=== PATIENT | female | born 1955 | race Caucasian/White ===

== ENCOUNTER 2016-08-25 09:34 | Emergency (ER) | payer OTHER ==
[~2016-08-25] VITALS: Ht 170.2 cm; Wt 122.0 kg
[~2016-08-25 09:34] MED LIST: CARV12.52 PO; CEPH500C25 OR; CHOL100027 OR; CLC150 PO; CLX20 PO; GLC500 PO; MEDLIST; REVEIWED
[2016-08-25 09:47] VITALS: TEMP 37.1; Ht 170.2 cm; Wt 122.0 kg
[2016-08-25] MEDS ORDERED: LABETALOL HCL IV 5 MG/ML 20ML IV STA (09:59)
--- NOTE | 2016-08-25 10:03 | EMERGENCY ROOM VISIT NOTE ---
History Report prepared by Malcolm: Frandy Rey Under the Supervision of: Dr. Boyd Ramos M.D. First contact with patient: 09:53 Chief Complaint: HYPERTENSION Stated Complaint: HBP, HEADACHE, OCCASIONAL CHEST PAIN,HORSEY COUGH History of Present Illness The patient is a 60 year old female who presents to the Emergency Room with complaints of persistent hypertension that was detected prior to arrival this morning. She was sent here from [facility] for the hypertension. The patient went to [facility] for a "nasty" cough with bloody mucous that has been going on for 2 weeks. She has been taking Mucinex and NyQuil, but they have not helped. She also notes that her eyes have been blurry for the past couple days, in addition to a headache and frequent urination. She states that she has had hypertension for years, but she does not take any medications for it. The patient's primary care physician left years ago and the patient says she has no insurance. She denies chest pain, shortness of breath, runny nose, or leg swelling. She states that she has not been diagnosed with diabetes. She is not taking any daily medications. The patient has never smoked. She has not taken any recent antibiotics or steroids. Source of History: patient Onset: Detected prior to arrival this morning Position: other (global - hypertension) Timing: other (persistent) Associated Symptoms: + cough, + headache, + urinary symptoms, No SOB, No chest pain Note: Associated symptoms: Blurry vision past few days. Denies runny nose or leg swelling. Review of Systems See HPI for pertinent positives & negatives. A total of 10 systems reviewed and were otherwise negative. Past Medical & Surgical Medical Problems: (1) Hypertension Family History No pertinent family history Social History Smoking Status: Never Smoker Marital Status: Housing Status: lives with family Occupation Status: unemployed Current/Historical Medications No Active Prescriptions or Reported Meds Allergies Coded Allergies: No Known Allergies (Verified , 08/25/16) Physical Exam Vital Signs Date Time Temp Pulse Resp B/P Pulse Ox O2 Delivery O2 Flow Rate FiO2 08/25/16 12:54 77 18 174/86 94 08/25/16 12:24 72 179/99 94 Room Air 08/25/16 11:08 73 164/86 08/25/16 11:03 79 204/86 08/25/16 10:55 81 18 210/121 08/25/16 10:42 85 08/25/16 09:47 37.1 84 18 211/120 96 Room Air Physical Exam GENERAL: Patient is well appearing and in no acute distress. HEENT: No acute trauma, normocephalic atraumatic, mucous membranes moist, no nasal congestion, no scleral icterus. NECK: No stridor, no adenopathy, no meningismus, trachea is midline. LUNGS: Junky cough. Mild crackles at bases. HEART: Regular rate and rhythm. No murmurs, rubs, gallops appreciated. ABDOMEN: Soft, nontender, bowel sounds positive, no masses appreciated, no peritonitis. BACK: No midline tenderness, no CVA tenderness EXTREMITIES: Normal motion all extremities, no cyanosis. 1+ edema bilateral ankles. NEUROLOGIC: Alert and oriented, no acute motor or sensory deficits, no focal weakness, cranial nerves grossly intact. SKIN: No rash, no jaundice, no diaphoresis. Medical Decision & Procedures ER Provider Diagnostic Interpretation: X ray results and stated below per my interpretation and radiologist interpretation. Other radiology results and stated below per my review and radiologist interpretation: CHEST ONE VIEW PORTABLE CLINICAL HISTORY: Persistent cough. COMPARISON STUDY: No previous studies for comparison. FINDINGS: Lung volumes are normal. This study is compromised by suboptimal penetration. No consolidation is identified. There is mild to moderate enlargement of the cardiac silhouette without evidence of pulmonary edema. IMPRESSION: 1. No acute findings. 2. Mild to moderate enlargement of the cardiac silhouette. Electronically signed by: Ernesto Calhoun M.D. 08/25/2016 10:23 AM Dictated Date/Time: 08/25/2016 10:[address] ANGIOGRAM OF THE BRAIN COMBO CLINICAL HISTORY: Headache. COMPARISON STUDY: No priors. TECHNIQUE: Unenhanced axial CT scan of the brain is performed. Subsequently, following the IV administration of 119 cc of Optiray 320, CT angiogram of the brain was performed from the skull base to the vertex. Images are reviewed in the axial, sagittal, and coronal planes. 3-D MIPS images are created and assessed. IV contrast was administered without complication. CT DOSE: 1112.43 mGycm FINDINGS: Brain parenchyma: The brain parenchyma is normal in appearance. There is no hemorrhage, mass effect, or evidence of acute territorial ischemia by CT criteria. There is no evidence of enhancing mass lesion on the angiogram phase images. No extra-axial fluid collection is seen. Vergara-white matter differentiation is preserved. Ventricles, sulci, and cisterns: Normal in configuration. CT angiogram of the brain: There is atherosclerotic calcification of the cavernous carotid arteries. The [place] is developmentally complete. The internal carotid arteries are widely patent, as are the anterior and middle cerebral arteries. The vertebrobasilar system and posterior cerebral arteries are widely patent. The vertebral arteries are codominant. There is no aneurysm, high-grade stenosis, or focal vessel cutoff identified throughout the intracranial circulation. Dural sinuses: Clear. Orbits: The bony orbits are intact. The orbital contents are normal as visualized. Sinuses and mastoids: There is trace mucosal thickening in the left maxillary antrum. The remaining paranasal sinuses are clear. The mastoid air cells are well pneumatized. Calvarium: Unremarkable. IMPRESSION: 1. There is no hemorrhage, mass effect, or evidence of acute territorial ischemia by CT criteria. 2. Unremarkable CT angiogram of the brain. Electronically signed by: Flavio Banerjee M.D. 08/25/2016 11:56 AM Dictated Date/Time: 08/25/2016 11:52 AM Laboratory Results 08/25/16 10:10 08/25/16 10:10 Test 08/25/16 10:10 08/25/16 10:34 Red Blood Count 5.38 M/uL (4.2-5.4) Mean Corpuscular Volume 84.9 fL (80-100) Mean Corpuscular Hemoglobin 30.1 pg (25-34) Mean Corpuscular Hemoglobin Concent 35.4 g/dl (32-36) RDW Standard Deviation 39.5 fL (36.4-46.3) RDW Coefficient of Variation 12.9 % (11.5-14.5) Mean Platelet Volume 10.0 fL (7.4-10.4) Anion Gap 9.0 mmol/L (3-11) Est Creatinine Clear Calc Drug Dose 98.8 ml/min Estimated GFR () 89.5 Estimated GFR (Non- 77.2 BUN/Creatinine Ratio 11.6 (10-20) Calcium Level 9.3 mg/dl (8.5-10.1) Troponin I < 0.015 ng/ml (0-0.045) Chemistry Specimen Hemolysis Urine Color YELLOW Urine Appearance CLOUDY (CLEAR) Urine pH 6.0 (4.5-7.5) Urine Specific [place] 1.022 (1.000-1.030) Urine Protein NEG (NEG) Urine Glucose (UA) NEG (NEG) Urine Ketones NEG (NEG) Urine Occult Blood 2+ (NEG) Urine Nitrite NEG (NEG) Urine Bilirubin NEG (NEG) Urine Urobilinogen NEG (NEG) Urine Leukocyte Esterase NEG (NEG) Urine WBC (Auto) 1-5 /hpf (0-5) Urine RBC (Auto) 10-30 /hpf (0-4) Urine Hyaline Casts (Auto) 1-5 /lpf (0-5) Urine Epithelial Cells (Auto) >30 /lpf (0-5) Urine Bacteria (Auto) 1+ (NEG) Laboratory results as reviewed by me. Medications Administered Medications (Trade) Dose Ordered Sig/Juan Ramon Route Start Time Stop Time Status Last Admin Dose Admin Labetalol HCl (Normodyne IV) 10 mg NOW STAT IV 08/25/16 09:59 08/25/16 10:01 DC 08/25/16 10:59 10 MG ECG Indication: other (hypertension) Rate (beats per minute): 81 Rhythm: normal sinus Findings: no ectopy, other (nonspecific ST abnormalities, no STEMI) ED Course 0953: The patient was evaluated in room A3. A complete history and physical exam was performed. 0959: Ordered Normodyne IV 10 mg IV. 1056: I reevaluated the patient and the patient's father of a brain aneurysm and had similar symptoms to the patient prior to it, so the patient agrees to a CT of his head. The patient's 3 brothers all had AZ's in their 50s or 60s. 1220: I reevaluated the patient and she is resting comfortably. The patient verbally expressed understanding and agreement of the treatment plan. The patient will be discharged. Medical Decision Differential: Benign Hypertension, Hypertensive Urgency/Emergency, Cardiovascular Pathology, Endocrine, Metabolic/Electrolyte, Renal Disease, End- organ Damage, amongst other pathologies entertained. 60 yr old female arrives with complaint of HTN, cough and sinus infection. Cough and sinus infection ongoing for 2 weeks. Mild headache semi chronic with her hypertension. Does have family history of cerebral aneurysm thus CTA done which was normal. Labs looking OK. No evidence of acute enorgan damage. Unclear her previous meds for hypertension thus will start with Norvasc which can be doubled if no improvement in BP. Case management set up Sunday appointment with new PCP. She is stable, no neuro deficits and wants to go home. Given prolonged sinus/bronchitis will treat with steroids and abx. Discussed symptoms requiring RTED. Impression Primary Impression: Hypertension Additional Impression: Acute sinus infection Scribe Attestation The scribe's documentation has been prepared under my direction and personally reviewed by me in its entirety. I confirm that the note above accurately reflects all work, treatment, procedures, and medical decision making performed by me. Departure Information Dispostion Home / Self-Care Prescriptions No Active Prescriptions or Reported Meds Patient Instructions Hypertension Dc, My [facility] Problem Qualifiers Primary Impression: Hypertension Hypertension type: essential hypertension Qualified Codes: I10 - Essential ( primary) hypertension Additional Impression: Acute sinus infection Sinusitis location: maxillary Recurrence: non-recurrent Qualified Codes: J01.00 - Acute maxillary sinusitis, unspecified
--- NOTE | 2016-08-25 10:25 | DIAGNOSTIC IMAGING REPORT ---
CHEST ONE VIEW PORTABLE CLINICAL HISTORY: Persistent cough. COMPARISON STUDY: No previous studies for comparison. FINDINGS: Lung volumes are normal. This study is compromised by suboptimal penetration. No consolidation is identified. There is mild to moderate enlargement of the cardiac silhouette without evidence of pulmonary edema. IMPRESSION: 1. No acute findings. 2. Mild to moderate enlargement of the cardiac silhouette. Electronically signed by: Ernesto Calhoun M.D. 08/25/2016 10:23 AM Dictated Date/Time: 08/25/2016 10:19 AM
[2016-08-25 10:42] LABS: HEMATOCRIT 45.7 % (37-47); MEAN CELL VOLUME 84.9 fL (80-100); MEAN CORPUSCULAR HEMOGLOBIN 30.1 pg (25-34); MEAN CORPUSCULAR HGB CONC 35.4 g/dl (32-36); PLATELET COUNT 299 K/uL (130-400); RED BLOOD COUNT 5.38 M/uL (4.2-5.4); WHITE BLOOD COUNT 11.09 K/uL (4.8-10.8)
[2016-08-25 10:59] LABS: URINE APPEARANCE CLOUDY (CLEAR); URINE BILIRUBIN NEG (NEG); URINE COLOR YELLOW; URINE EPITHELIAL CELL AUTO >30 /lpf (0-5); URINE NITRITE NEG (NEG); URINE SPECIFIC GRAVITY 1.022 (1.000-1.030); UROBILINOGEN NEG (NEG); ZZUR CULT IF INDIC CLEAN CATCH YES
[2016-08-25 11:05] LABS: BLOOD UREA NITROGEN 10 mg/dl (7-18); BUN/CREATININE RATIO 11.6 (10-20); CALCIUM 9.3 mg/dl (8.5-10.1); CARBON DIOXIDE 25 mmol/L (21-32); CHLORIDE 108 mmol/L (98-107); CREATININE 0.83 mg/dl (0.60-1.20); GLUCOSE 88 mg/dl (70-99); SODIUM 142 mmol/L (136-145)
[2016-08-25 11:08] LABS: MANUAL MICROSCOPIC REQUIRED? NO; REVIEW REQ? NO
--- NOTE | 2016-08-25 11:58 | DIAGNOSTIC IMAGING REPORT ---
CT ANGIOGRAM OF THE BRAIN COMBO CLINICAL HISTORY: Headache. COMPARISON STUDY: No priors. TECHNIQUE: Unenhanced axial CT scan of the brain is performed. Subsequently, following the IV administration of 119 cc of Optiray 320, CT angiogram of the brain was performed from the skull base to the vertex. Images are reviewed in the axial, sagittal, and coronal planes. 3-D MIPS images are created and assessed. IV contrast was administered without complication. CT DOSE: 1112.43 mGycm FINDINGS: Brain parenchyma: The brain parenchyma is normal in appearance. There is no hemorrhage, mass effect, or evidence of acute territorial ischemia by CT criteria. There is no evidence of enhancing mass lesion on the angiogram phase images. No extra-axial fluid collection is seen. Vergara-white matter differentiation is preserved. Ventricles, sulci, and cisterns: Normal in configuration. CT angiogram of the brain: There is atherosclerotic calcification of the cavernous carotid arteries. The [place] is developmentally complete. The internal carotid arteries are widely patent, as are the anterior and middle cerebral arteries. The vertebrobasilar system and posterior cerebral arteries are widely patent. The vertebral arteries are codominant. There is no aneurysm, high-grade stenosis, or focal vessel cutoff identified throughout the intracranial circulation. Dural sinuses: Clear. Orbits: The bony orbits are intact. The orbital contents are normal as visualized. Sinuses and mastoids: There is trace mucosal thickening in the left maxillary antrum. The remaining paranasal sinuses are clear. The mastoid air cells are well pneumatized. Calvarium: Unremarkable. IMPRESSION: 1. There is no hemorrhage, mass effect, or evidence of acute territorial ischemia by CT criteria. 2. Unremarkable CT angiogram of the brain. Electronically signed by: Flavio Banerjee M.D. 08/25/2016 11:56 AM Dictated Date/Time: 08/25/2016 11:52 AM
[2016-08-25] MEDS ORDERED: PRED50TA PO (12:16)
[2016-08-25] MEDS ORDERED: AMOX875T PO (12:16)
[2016-08-25] MEDS ORDERED: AMLO-110 PO (12:16)
[2016-08-25 12:54] VITALS: BP 174/86; PULSE 77; O2SAT 94
== END 2016-08-25 13:02 | disposition home or self-care (01) ==
LOC: C.EDB 09:35 → C.EDA 13:02
DX: I10 Essential (primary) hypertension (principal); J01.00 Acute maxillary sinusitis, unspecified

== ENCOUNTER → 2016-09-08 | Outpatient (CLI) | payer OTHER ==
[~2016-09-08] MED LIST changes: -CARV12.52 PO; -CEPH500C25 OR; -CHOL100027 OR; +CITA20TA4 PO; -CLC150 PO; -CLX20 PO; -GLC500 PO; +LISI-787 PO; -MEDLIST; -REVEIWED
--- NOTE | 2016-09-14 15:37 | MAMMOGRAPHY REPORT ---
BILATERAL DIGITAL SCREENING MAMMOGRAM TOMOSYNTHESIS WITH CAD: 09/08/2016 CLINICAL HISTORY: Routine screening. Patient has no complaints. TECHNIQUE: Breast tomosynthesis in addition to standard 2D mammography was performed. Current study was also evaluated with a Computer Aided Detection (CAD) system. COMPARISON: Comparison is made to exams dated: 02/08/2009 mammogram and 01/25/2009 mammogram - [facility]. BREAST COMPOSITION: There are scattered areas of fibroglandular density in both breasts. FINDINGS: No suspicious masses, calcifications, or areas of architectural distortion are noted in e ither breast. There has been no significant interval change compared to prior exams. Oval circumscr ibed benign-appearing 10 mm mass in the left upper outer quadrant is stable compared to the prior 28 03 exams. IMPRESSION: ACR BI-RADS CATEGORY 2: BENIGN There is no mammographic evidence of malignancy. A 1 year screening mammogram is recommended. The p atient will receive written notification of the results. Approximately 10% of breast cancers are not detected with mammography. A negative mammographic repor t should not delay biopsy if a clinically suggestive mass is present. Alaina Jacobs M.D. ah/:09/14/2016 13:47:46 Bull Ladle Tender: Ny LEIGH)(M), [facility] [address] letter sent: Normal 1/2 BI-RADS Code: ACR BI-RADS Category 2: Benign
== END | disposition home or self-care (01) ==
LOC: C.MAMM 13:27
PROVIDERS: ATTEND Neuromusculoskeletal Medicine & OMM
DX: Z12.31 Encounter for screening mammogram for malignant neoplasm of breast (principal)

== ENCOUNTER 2017-02-07 11:41 | Emergency (ER) | payer OTHER ==
[~2017-02-07] VITALS: Ht 170.2 cm; Wt 120.5 kg
[2017-02-07 11:46] VITALS: TEMP 37.2; Ht 170.2 cm; Wt 120.5 kg
[2017-02-07] MEDS ORDERED: METOCLOPRAMIDE HCL INJ 5 MG/ML 2 ML VIAL IV STA (12:15)
[2017-02-07] MEDS ORDERED: DiphenhydrAMINE HCL 50 MG/ML VIAL IV STA (12:15)
--- NOTE | 2017-02-07 12:16 | EMERGENCY ROOM VISIT NOTE ---
History Report prepared by Malcolm: Frandy Rey Under the Supervision of: Dr. Hank Stinson M.D. First contact with patient: 11:50 Chief Complaint: CARDIAC ASSESSMENT Stated Complaint: HIGH BLOOD PRESSURE,DIZZINESS,DOCTOR REFERRED Nursing Triage Summary: triage ntoe; pt reports for the past 10 days she has had intermittent dizzy episodes, headaches and occasional chest pain. History of Present Illness The patient is a 61 year old female who presents to the Emergency Room with complaints of intermittent dizzy spells that started 10 days ago. She says that occasionally when she walks, she gets woozy and off-balance. The patient states that she cannot find a pattern as to what brings on the episodes. She adds that she has been having intermittent mild chest pain and headaches, and the last chest pain episode was a couple days ago. She notes that her blood pressure has been elevated over the past week, but she has been taking her blood pressure medications (Lisinopril, HCTZ), including this morning. The patient called her primary care office this morning, and talked to a nurse there, who recommended that the patient come here for evaluation after the patient told the nurse that her blood pressure was currently 140/119. Currently, the patient says she feels fine, but the room is "not focused perfectly". She denies any numbness, tingling , or weakness. She does not drink alcohol, use tobacco products, or use recreational drugs. Source of History: patient Onset: 10 days ago Position: other (global - dizzy ) Timing: intermittent Associated Symptoms: + headache, + chest pain, No weakness, No numbness (or tingling) Note: Associated symptoms: Intermittently off balance. Review of Systems See HPI for pertinent positives and negatives. A total of ten systems were reviewed and were otherwise negative. Past Medical & Surgical Medical Problems: (1) Hypertension Family History No pertinent family history Social History Smoking Status: Never Smoker Smokeless Tobacco Use: No Alcohol Use: none Drug Use: none Marital Status: Housing Status: lives with family Occupation Status: unemployed Current/Historical Medications Scheduled Citalopram Hydrobromide (Citalopram Hydrobromide), 20 MG PO DAILY Lisinopril/Hctz (Zestoretic 20MG/12.5MG), 1 TAB PO DAILY Allergies Coded Allergies: No Known Allergies (Verified , 08/25/16) Physical Exam Vital Signs Date Time Temp Pulse Resp B/P (MAP) Pulse Ox O2 Delivery O2 Flow Rate FiO2 02/07/17 13:41 66 19 95 02/07/17 13:31 146/86 02/07/17 13:11 69 22 94 02/07/17 13:01 193/91 02/07/17 12:32 184/91 02/07/17 12:11 76 21 92 02/07/17 12:09 79 02/07/17 12:03 185/92 02/07/17 11:46 37.2 81 18 159/84 96 Room Air Physical Exam GENERAL: Awake, alert, well-appearing, in no distress HENT: Normocephalic, atraumatic. Oropharynx unremarkable. EYES: Normal conjunctiva. Sclera non-icteric. NECK: Supple. No nuchal rigidity. FROM. No JVD. RESPIRATORY: Clear to auscultation. CARDIAC: Regular rate, normal rhythm. Extremities warm and well perfused. Pulses equal. ABDOMEN: Soft, non-distended. No tenderness to palpation. No rebound or guarding. No masses. RECTAL: Deferred. MUSCULOSKELETAL: Chest examination reveals no tenderness. The back is symmetrical on inspection without obvious abnormality. There is no CVA tenderness to palpation. No joint edema. LOWER EXTREMITIES: Calves are equal size bilaterally and non-tender. No edema. No discoloration. NEURO: Cranial nerves 2-12 intact. Mild fatigable horizontal nystagmus. 5/5 upper extremity and lower extremity strength. MUR SP, DP, Tib nerves intact to sensory and motor. No pronator drift. Good finger to nose, good heel to lara. SKIN: No rash or jaundice noted. Medical Decision & Procedures ER Provider Diagnostic Interpretation: X-ray: Per my interpretation, radiologist review. TWO VIEW CHEST CLINICAL HISTORY: Intermittent atypical chest pain. FINDINGS: PA and lateral chest radiographs are compared to study dated 08/25/2016. The examination is degraded by large body habitus. The heart is top normal for projection. The mediastinal contour is within normal limits. The lungs and pleural spaces are clear. There is no pneumothorax. The skeletal structures are osteopenic. The bony thorax appears intact. IMPRESSION: No active disease in the chest. Electronically signed by: Flavio Banerjee M.D. 02/07/2017 1:02 PM Dictated Date/Time: 02/07/2017 1:02 PM Laboratory Results 02/07/17 11:55 Red Blood Count 5.11, Mean Corpuscular Volume 89.8, Mean Corpuscular Hemoglobin 31.1, Mean Corpuscular Hemoglobin Concent 34.6, Mean Platelet Volume 10.2, Neutrophils (%) (Auto) 61.2, Lymphocytes (%) (Auto) 25.7, Monocytes (%) (Auto) 8.4, Eosinophils (%) (Auto) 3.8, Basophils (%) (Auto) 0.6, Neutrophils # (Auto) 6.56, Lymphocytes # (Auto) 2.76, Monocytes # (Auto) 0.90, Eosinophils # (Auto) 0.41, Basophils # (Auto) 0.06 02/07/17 11:55 02/07/17 12:57 Test 02/07/17 11:55 02/07/17 12:36 02/07/17 12:45 02/07/17 12:57 White Blood Count 10.72 K/uL (4.8-10.8) Red Blood Count 5.11 M/uL (4.2-5.4) Hemoglobin 15.9 g/dL (12.0-16.0) Hematocrit 45.9 % (37-47) Mean Corpuscular Volume 89.8 fL (80-100) Mean Corpuscular Hemoglobin 31.1 pg (25-34) Mean Corpuscular Hemoglobin Concent 34.6 g/dl (32-36) Platelet Count 292 K/uL (130-400) Mean Platelet Volume 10.2 fL (7.4-10.4) Neutrophils (%) (Auto) 61.2 % Lymphocytes (%) (Auto) 25.7 % Monocytes (%) (Auto) 8.4 % Eosinophils (%) (Auto) 3.8 % Basophils (%) (Auto) 0.6 % Neutrophils # (Auto) 6.56 K/uL (1.4-6.5) Lymphocytes # (Auto) 2.76 K/uL (1.2-3.4) Monocytes # (Auto) 0.90 K/uL (0.11-0.59) Eosinophils # (Auto) 0.41 K/uL (0-0.5) Basophils # (Auto) 0.06 K/uL (0-0.2) RDW Standard Deviation 42.7 fL (36.4-46.3) RDW Coefficient of Variation 12.9 % (11.5-14.5) Immature Granulocyte % (Auto) 0.3 % Immature Granulocyte # (Auto) 0.03 K/uL (0.00-0.02) Anion Gap 5.0 mmol/L (3-11) Est Creatinine Clear Calc Drug Dose 85.6 ml/min Estimated GFR () 76.4 Estimated GFR (Non- 65.9 BUN/Creatinine Ratio 15.0 (10-20) Calcium Level 9.4 mg/dl (8.5-10.1) Phosphorus Level 2.4 mg/dl (2.5-4.9) Bedside Troponin I < 0.030 ng/ml (0-0.045) Urine Color YELLOW Urine Appearance CLEAR (CLEAR) Urine pH 6.0 (4.5-7.5) Urine Specific Cuervo 1.014 (1.000-1.030) Urine Protein NEG (NEG) Urine Glucose (UA) NEG (NEG) Urine Ketones NEG (NEG) Urine Occult Blood 1+ (NEG) Urine Nitrite NEG (NEG) Urine Bilirubin NEG (NEG) Urine Urobilinogen NEG (NEG) Urine Leukocyte Esterase NEG (NEG) Urine WBC (Auto) 1-5 /hpf (0-5) Urine RBC (Auto) 0-4 /hpf (0-4) Urine Hyaline Casts (Auto) 0 /lpf (0-5) Urine Epithelial Cells (Auto) >30 /lpf (0-5) Urine Bacteria (Auto) NEG (NEG) Magnesium Level 1.7 mg/dl (1.8-2.4) Laboratory results reviewed by me Medications Administered Medications (Trade) Dose Ordered Sig/Juan Ramon Route Start Time Stop Time Status Last Admin Dose Admin Metoclopramide HCl (Reglan Inj) 10 mg NOW STAT IV 02/07/17 12:15 02/07/17 12:26 DC 02/07/17 12:39 10 MG Diphenhydramine HCl (Benadryl Inj) 25 mg NOW STAT IV 02/07/17 12:15 02/07/17 12:26 DC 02/07/17 12:40 25 MG Sodium Chloride 1,000 ml @ 999 mls/hr Q1H1M IV 02/07/17 12:15 03/09/17 12:14 02/07/17 12:58 999 MLS/HR ECG Indication: chest pain Rate (beats per minute): 75 Rhythm: normal sinus Findings: other (normal NV and QRS intervals, no major ST or T wave abnormalities) ED Course 1159: The patient was evaluated in room C3. A complete history and physical exam was performed. 1215: Ordered NSS 1000 ml @ 999 mls/hr IV, Benadryl Inj 25 mg IV, Reglan Inj 10 mg IV. 1322: I reevaluated the patient and she has no dizziness or chest pain. She is asymptomatic. 1415: I reevaluated the patient and she has a clean urine. I talked to her about return precautions for her chest pain and dizziness. She ambulated without symptoms. The patient was referred to her primary care physician for further pain management. The patient verbally expressed understanding and agreement of the treatment plan. The patient will be discharged. Medical Decision Differential diagnosis includes but is not limited to: BPPV, hypertensive emergency, TIA, stroke, inner ear dysfunction. 61-year-old white female past history of hypertension who presents to the emergency department with the chief complaint of chest pain and dizziness. Patient describes intermittent episodes of dizziness and slight issues with ambulation particularly imbalance. Denies any ringing in the ears difficulty with vision or hearing. Patient has no other numbness tingling or weakness. Patient is taking her antihypertensive medications without any changes. Patient states that she spoke with the on-call nurse at her PCPs office who referred her here. Patient did state that she was feeling well. Upon arrival patient had no active chest pain. Patient denied any shortness of breath. Patient had an EKG that showed some questionable flattening the anterior leads but with developing ST or T-wave changes. Patient had a negative troponin normal chest x-ray and other fairly normal lab work. Patient heart score less than 3. Given history and physical PE is fairly unlikely. She was given a headache cocktail and given her intermittent symptoms of vertigo and patient was asymptomatic. Patient had no neurologic deficits on exam. Patient ambulatory without difficulty and did not have an ataxic gait. Patient unlikely to have hypertensive emergency, TIA, or stroke. Patient was feeling well for several hours while being observed here in the emergency Department patient was informed of all findings. Patient was told to continue to monitor her symptoms at home. Patient was told that if she has worsening symptoms of either her chest pain shortness of breath or vertigo that she should call her primary care physician's office and/or return to the emergency department for further evaluation. Patient agreed with plan of care. All cushions were answered. Patient was safely discharged home. Medication Reconcilliation Current Medication List: was personally reviewed by me Blood Pressure Screening Patient's blood pressure: Elevated blood pressure Blood pressure disposition: Referred to PCP Impression Primary Impression: Hypertension Additional Impression: Dizziness Scribe Attestation The scribe's documentation has been prepared under my direction and personally reviewed by me in its entirety. I confirm that the note above accurately reflects all work, treatment, procedures, and medical decision making performed by me. Departure Information Dispostion Home / Self-Care Referrals No Doctor, Assigned (PCP) Patient Instructions Chest Pain - [facility], Dizziness Balance Probs Fainting, My [facility] Additional Instructions Please follow-up with her primary care physician for further evaluation. If you have worsening or continued symptoms even with at-home treatment please call your primary care physician's office or return to the emergency department. Problem Qualifiers
[2017-02-07] MEDS ORDERED: LISI-787 PO (12:24)
[2017-02-07] MEDS ORDERED: CITA20TA4 PO (12:24)
[2017-02-07 12:30] LABS: BASO % 0.6 %; BASO ABS # 0.06 K/uL (0-0.2); COMPLETE YES; EOS % 3.8 %; HEMATOCRIT 45.9 % (37-47); IG% 0.3 %; LYMPH % 25.7 %; LYMPH ABS # 2.76 K/uL (1.2-3.4); MEAN CELL VOLUME 89.8 fL (80-100); MEAN CORPUSCULAR HEMOGLOBIN 31.1 pg (25-34); MEAN CORPUSCULAR HGB CONC 34.6 g/dl (32-36); MEAN PLATELET VOLUME 10.2 fL (7.4-10.4); MONO % 8.4 %; NEUT % 61.2 %; PLATELET COUNT 292 K/uL (130-400); RED BLOOD COUNT 5.11 M/uL (4.2-5.4); WHITE BLOOD COUNT 10.72 K/uL (4.8-10.8)
[2017-02-07] MEDS: SODIUM CHLORIDE 0.9% 1000ML 1,000 ML IV SCH ×2 (12:39→12:58)
[2017-02-07 12:47] LABS: BLOOD UREA NITROGEN 14 mg/dl (7-18); CALCIUM 9.4 mg/dl (8.5-10.1); CARBON DIOXIDE 27 mmol/L (21-32); CHLORIDE 106 mmol/L (98-107); CREATININE 0.94 mg/dl (0.60-1.20); GLUCOSE 77 mg/dl (70-99); PHOSPHORUS 2.4 mg/dl (2.5-4.9); SODIUM 138 mmol/L (136-145)
--- NOTE | 2017-02-07 13:04 | DIAGNOSTIC IMAGING REPORT ---
TWO VIEW CHEST CLINICAL HISTORY: Intermittent atypical chest pain. FINDINGS: PA and lateral chest radiographs are compared to study dated 08/25/2016. The examination is degraded by large body habitus. The heart is top normal for projection. The mediastinal contour is within normal limits. The lungs and pleural spaces are clear. There is no pneumothorax. The skeletal structures are osteopenic. The bony thorax appears intact. IMPRESSION: No active disease in the chest. Electronically signed by: Flavio Banerjee M.D. 02/07/2017 1:02 PM Dictated Date/Time: 02/07/2017 1:02 PM
[2017-02-07 13:22] LABS: POTASSIUM 3.7 mmol/L (3.5-5.1)
[2017-02-07 13:23] LABS: MAGNESIUM 1.7 mg/dl (1.8-2.4)
[2017-02-07 14:14] LABS: URINE APPEARANCE CLEAR (CLEAR); URINE BILIRUBIN NEG (NEG); URINE COLOR YELLOW; URINE EPITHELIAL CELL AUTO >30 /lpf (0-5); URINE NITRITE NEG (NEG); URINE SPECIFIC GRAVITY 1.014 (1.000-1.030); UROBILINOGEN NEG (NEG); ZZUR CULT IF INDIC CLEAN CATCH NO
[2017-02-07 14:17] LABS: MANUAL MICROSCOPIC REQUIRED? NO; REVIEW REQ? NO
[2017-02-07 15:24] VITALS: BP 134/72; PULSE 68; O2SAT 98
== END 2017-02-07 15:24 | disposition home or self-care (01) ==
LOC: C.EDB 11:42 → C.EDC 15:24
DX: I10 Essential (primary) hypertension (principal); R42 Dizziness and giddiness; R07.89 Other chest pain